=== PATIENT | female | born 1975 | race Caucasian/White ===

== ENCOUNTER 2020-01-13 11:36 | Emergency (ER) | payer BC ==
[~2020-01-13] VITALS: Ht 175.3 cm; Wt 74.8 kg
[2020-01-13] MEDS ORDERED: KETOROLAC TROMETHAMINE 15 MG INJ IVP ONE (12:15)
[2020-01-13] MEDS ORDERED: KETOROLAC TROMETHAMINE 30 MG INJ ONE (12:18)
--- NOTE | 2020-01-13 12:22 | NUR ---
PATIENT IS ROOM 4 WITH SISTER AT BEDSIDE. SHE IS A/A/O X3 IN NO DISTRESS. IV PLACED, MED GIVEN ORDERED.
[2020-01-13 12:29] LABS: BASOPHILS % (AUTO) 0.3 % (0.0-2.0); EOSINOPHILS # (AUTO) 1.1 K/uL (0.0-0.7); EOSINOPHILS % (AUTO) 12.9 % (0.0-7.0); HEMATOCRIT 40.5 % (31.2-41.9); HEMOGLOBIN 13.7 g/dL (10.9-14.3); LYMPHOCYTES # (AUTO) 2.5 K/uL (20.0-40.0); LYMPHOCYTES % (AUTO) 29.1 % (20.5-51.5); MEAN CORPUSCULAR HEMOGLOBIN 31.7 uug (24.7-32.8); MEAN CORPUSCULAR HGB CONC 34 g/dL (32.3-35.6); MEAN CORPUSCULAR VOLUME 93.9 fL (75.5-95.3); MONOCYTES # (AUTO) 0.5 K/uL (2.0-10.0); MONOCYTES % (AUTO) 6.2 % (0.0-11.0); NEUTROPHILS # (AUTO) 4.4 K/uL (1.8-8.9); NEUTROPHILS % (AUTO) 51.5 % (38.5-71.5); PLATELET COUNT (AUTO) 273 K/uL (179-408); RED BLOOD CELL COUNT(AUTO) 4.31 MIL/uL (3.63-4.92); WHITE BLOOD COUNT (AUTO) 8.6 K/uL (3.8-11.8)
[2020-01-13 12:38] LABS: CREATININE 0.6 mg/dL (0.6-1.3); POTASSIUM 4.4 mmol/L (3.5-5.1)
[2020-01-13 12:44] LABS: BILIRUBIN,DIRECT 0.1 mg/dL (0.0-0.2); BILIRUBIN,TOTAL 0.5 mg/dL (0.2-1.0); TOTAL PROTEIN, SERUM 6.7 g/dL (6.4-8.2)
[2020-01-13] MEDS ORDERED: LIDOCAINE VISCUS 2% 15 ML UDC MM ONE (13:00)
[2020-01-13] MEDS ORDERED: MAG HYDROX/AL HYDROX/SIMETH 30 ML LIQUID UDC PO ONE (13:00)
--- NOTE | 2020-01-13 13:02 | NUR ---
PATIENT STATES PAIN HAS DIMINISHED SOME.
[2020-01-13] MEDS ORDERED: LIDOCAINE VISCUS 2% 15 ML UDC ONE (13:03)
[2020-01-13] MEDS ORDERED: MAG HYDROX/AL HYDROX/SIMETH 30 ML LIQUID UDC ONE (13:04)
--- NOTE | 2020-01-13 13:15 | NUR ---
PATIENT STATES SHE MAY BE ALLERGIC TO COTNRAST DYE AND/OR IODINE. DR FERRELL NOTIFIED. WILL DO CT WITHOUT CONTRAST.
[2020-01-13 13:36] LABS: *URINE HCG, QUAL NEGATIVE (NEGATIVE)
[2020-01-13 13:40] LABS: *BILIRUBIN,URIN NEGATIVE (NEGATIVE); *BLOOD, URINE NEGATIVE (NEGATIVE); *CLARITY,URINE CLEAR (CLEAR); *COLOR,URINE YELLOW (YELLOW); *KETONES,URINE NEGATIVE (NEGATIVE); *UROBILINOGEN,URINE 0.2 E.U./dl (NORMAL); LEUKOCYTE ESTERASE ,URINE NEGATIVE (NEGATIVE); NITRITE, URINE NEGATIVE (NEGATIVE); UGLUCOSE NEGATIVE (NEGATIVE)
[2020-01-13] MEDS ORDERED: FAMOTIDINE. 20 MG/2 ML VIAL IV ONE ×2 (15:00→15:03)
--- NOTE | 2020-01-13 15:02 | NUR ---
patient states she felt better after maalox\lidocaine.
--- NOTE | 2020-01-13 15:20 | NUR ---
IV removed. Catheter intact and site benign. Pressure and 4x4 gauze applied to site. No bleeding noted.
--- NOTE | 2020-01-13 15:20 | NUR ---
DC AND FOLLOW UP INSTRUCTIONS GIVEN AND EXPLAINED TO PATIENT WHO STATES SHE UNDERSTANDS ALL INSTRUCTIONS
[2020-01-13 15:21] VITALS: BP 112/70
== END 2020-01-13 15:22 | disposition home or self-care (01) ==
LOC: ER 11:36
DX: K29.70 Gastritis, unspecified, without bleeding (principal); Z88.5 Allergy status to narcotic agent
CPT/HCPCS: 36415; 71045; 74176; 80048; 80076; 81001; 83690; 84703; 85025; 96374; 96375; 99285; J1885; J3490; A4663